=== PATIENT | male | born 1990 | race Caucasian/White ===

== ENCOUNTER 2017-07-18 22:15 | Emergency (ER) | payer OTHER ==
[~2017-07-18] VITALS: Ht 175.3 cm; Wt 113.5 kg
[~2017-07-18 22:15] MED LIST: ATIVAN0.5 MG PO; AURALGAN14.8 ML RIGHT EAR; BACTRIM,SEPT1 TABLET PO; CIPRO HC OTIC S10 ML RIGHT EAR; DOXYCYCLINE HY100 MG PO; IBUPROFEN800 MG PO; KEFLEX500 MG PO; LOPRESSOR25 MG PO; METHADONE5 MG PO; METHADOSE40 MG PO; MOTRIN800 MG PO; NAPROSYN500 MG PO; NO HOME MEDS; NO MEDS; PEN-VEE K,VEET500 MG PO; SUBOXONE 8 M1 TABLET SL; ULTRAM50 MG PO
[2017-07-19] MEDS ORDERED: MUCINEX1200 MG PO (00:07)
[2017-07-19] MEDS ORDERED: MOTRIN600 MG PO (00:07)
[2017-07-19 00:17] VITALS: BP 133/75
== END 2017-07-19 00:18 | disposition home or self-care (01) ==
LOC: RME 22:15 → EME 22:15 → RME 07-19 00:18
DX: B34.9 Viral infection, unspecified (principal); F17.210 Nicotine dependence, cigarettes, uncomplicated; Z88.8 Allergy status to other drugs, medicaments and biological substances
CPT/HCPCS: 87651 90; 99281; 99283